=== PATIENT | female | born 1980 | race African-American/Black ===

== ENCOUNTER 2016-10-18 09:29 | Emergency (ER) | payer MEDICAID ==
[~2016-10-18] VITALS: Ht 165.1 cm; Wt 63.5 kg
--- NOTE | 2016-10-18 09:40 | NUR ---
PT CAME IN FOR R SIDED PAIN AND SWELLING TO NECK THAT SHE NOTICED THIS AM. DENIES FEVER, DENIES TRAUMA. RR EVEN AND UNLABORED. SEEN BY MD FOR EVAL. VSS. SAFETY AND COMFORT MEASURES PROVIDED. WILL MONITOR.
[2016-10-18] MEDS ORDERED: IV NS 0.9% 1,000 ML BAG IV ONE (10:00)
--- NOTE | 2016-10-18 10:00 | NUR ---
IV ACCESS STARTED, BLOOD DRAWN FOR LABS. PT MEDICATED ORDERED. URINE SAMPLE OBTAINED, SENT.
[2016-10-18 10:11] LABS: BASOPHILS % (AUTO) 0.7 % (0.0-2.0); EOSINOPHILS # (AUTO) 0.1 /CMM (0.0-0.7); EOSINOPHILS % (AUTO) 2.6 % (0.0-6.0); HEMATOCRIT 38 % (33-45); HEMOGLOBIN 12.6 g/dL (11.5-14.8); LYMPHOCYTES # (AUTO) 1.4 /CMM (0.8-4.8); LYMPHOCYTES % (AUTO) 25.6 % (20.0-44.0); MEAN CORPUSCULAR HEMOGLOBIN 31 PG (26.0-33.0); MEAN CORPUSCULAR HGB CONC 33 g/dl (31.0-36.0); MEAN CORPUSCULAR VOLUME 93 fL (82-100); MONOCYTES # (AUTO) 0.3 /CMM (0.1-1.30); NEUTROPHILS # (AUTO) 3.7 /CMM (1.8-8.9); NEUTROPHILS % (AUTO) 65.1 % (43.0-81.0); PLATELET COUNT (AUTO) 272 /CMM (150-450); RED BLOOD CELL COUNT(AUTO) 4.11 MIL/uL (4.0-5.2); WHITE BLOOD COUNT (AUTO) 5.5 K/uL (4.3-11.0)
[2016-10-18 10:12] LABS: APPEARANCE,URINE Clear (CLEAR); BILIRUBIN,URINE Negative (NEGATIVE); BLOOD, URINE Small Ery/uL (NEGATIVE); COLOR,URINE Yellow (YELLOW); KETONES,URINE Negative (NEGATIVE); LEUKOCYTE ESTERASE ,URINE Negative (NEGATIVE); NITRITE, URINE Negative (NEGATIVE); PROTEIN,URINE Negative (NEGATIVE); UGLUCOSE Negative (NEGATIVE); UROBILINOGEN,URINE 0.2 EU/dL (0.2)
[2016-10-18 10:15] LABS: PREGNANCY TEST URINE QUAL NEGATIVE (NEGATIVE)
[2016-10-18 10:16] LABS: BACTERIA,URINE None seen /HPF (None Seen); SQUAMOUS EPITHELIAL CELL,UR Few /HPF (None Seen); WBC,URINE 0-2 /HPF (0-3)
[2016-10-18 10:17] LABS: CALCIUM, SERUM 8.4 mg/dL (8.5-10.1); POTASSIUM 3.9 mmol/L (3.5-5.1)
--- NOTE | 2016-10-18 10:25 | NUR ---
PT TAKEN TO CT.
[2016-10-18] MEDS ORDERED: IV NS 0.9% 250 ML IV ONE (10:39)
[2016-10-18] MEDS ORDERED: IOHEXOL-300 100 ML VIAL IV ONE (10:39)
--- NOTE | 2016-10-18 11:49 | NUR ---
CALLED , LEFT MESSAGE ON VOICEMAIL
--- NOTE | 2016-10-18 12:29 | NUR ---
PAGED DR.DAVID ALBERT
[2016-10-18] MEDS ORDERED: CLINDAMYCIN 600 MG in IV D5W 100 ML IV ONE (12:30)
[2016-10-18] MEDS ORDERED: PIPERACILLIN /TAZOBACTAM 3.375 G in IV D5W 50 ML IV ONE (12:30)
--- NOTE | 2016-10-18 12:30 | NUR ---
FOOD TRAY PROVIDED TO PT UPON REQUEST. MD CALDERÓN.
--- NOTE | 2016-10-18 12:48 | NUR ---
REPAGED DR.DAVID ALBERT
--- NOTE | 2016-10-18 13:06 | NUR ---
CALLED , SPOKE WITH MANAGER HI, SHE INFORMED ME THE DOCTOR IS OUT OF TOWN.
--- NOTE | 2016-10-18 13:14 | NUR ---
CALLED DR.DAVID GALLARDO OFFICE, THEY SAID HE IS ON VACATION
--- NOTE | 2016-10-18 13:16 | NUR ---
CALLED DR.MARC MAHARAJ, TRANSFERRED CALL TO
--- NOTE | 2016-10-18 13:20 | NUR ---
[facility] PAGED, [facility] [employer]
--- NOTE | 2016-10-18 13:55 | NUR ---
Patient discharged to home in stable condition. Written and verbal after care instructions given. Patient verbalizes understanding of instruction.
--- NOTE | 2016-10-18 13:55 | NUR ---
IV removed. Catheter intact and site benign. Pressure and 4x4 applied to site. No bleeding noted.
[2016-10-18 13:56] VITALS: BP 117/83
== END 2016-10-18 14:15 | disposition home or self-care (01) ==
LOC: ER 09:32
DX: L03.221 Cellulitis of neck (principal); R82.99 Other abnormal findings in urine
CPT/HCPCS: 36415; 70491-TC; 80048-TC; 81000-TC; 83605-TC; 84703-TC; 85025-TC; 87040-TC; 87081-TC; 87086-TC; A4606; J2543; J3490; J7030; J7050; J7060; Q9967; Z7610